=== PATIENT | male | born 1960 | race Caucasian/White ===

== ENCOUNTER 2024-01-11 14:43 | Outpatient (CLI) | payer BC, SELFPAY ==
[2024-01-11 15:33] LABS: Basophils # 0.1 K/mm3 (0-0.2); Basophils % 0.7 % (0.1-2.0); Eosinophils # 0.2 K/mm3 (0.0-0.4); Eosinophils % 2.3 % (0.1-12.0); Hematocrit 55.1 % (42.0-52.0); Hemoglobin 17.7 g/dL (14.1-18.0); Lymphocytes # 2.1 K/mm3 (0.7-4.5); Lymphocytes % 20.5 % (10-50); Mean Corpuscular HGB Conc 32.1 g/dL (31.8-35.4); Mean Corpuscular Hemoglobin 31.3 pg (27.0-31.2); Mean Corpuscular Volume 97.5 fl (80-94); Mean Platelet Volume 7.8 fl (7.4-10.4); Monocytes # 0.5 K/mm3 (0.1-1.0); Monocytes % 5.2 % (1.7-9.3); Neutrophils # 7.3 K/mm3 (1.8-7.8); Neutrophils % 71.3 % (37.0-80.0); Platelet Count 283 K/mm3 (142-424); Red Blood Count 5.65 M/mm3 (4.60-6.20); Red Cell Distribution Width 13.5 % (11.5-17.5); White Blood Count 10.2 K/mm3 (4.8-10.8)
[2024-01-11 15:54] LABS: Alanine Aminotransferase 27 U/L (12-78); Alkaline Phosphatase 78 U/L (38-126); Anion Gap 8.2 mEq/L (5-15); Aspartate Amino Transferase 26 U/L (17-59); Bilirubin,Direct 0.3 mg/dl (0.0-0.4); Bilirubin,Indirect 0.5 mg/dL (0.0-0.9); Bilirubin,Total 0.8 mg/dl (0.2-1.3); Bilirubin,Unconjugated 0.5 mg/dL (0.0-1.1); Blood Urea Nitrogen 18 mg/dl (9-20); Calcium 9.6 mg/dl (8.4-10.2); Carbon Dioxide 30 mmol/L (22.0-30.0); Chloride 104 mmol/L (98-107); Chol/HDL Ratio 3.6 (1-3.5); Cholesterol 218 mg/dl (140-200); Estimated Glomerular Filt Rate 85 ml/min (>60); GFR (African American) 103 ML/MIN (>60); Glucose 100 mg/dl (74-100); HDL Cholesterol 60 mg/dl (40-60); Magnesium 2.1 mg/dl (1.6-2.3); Potassium 4.2 mmoL/L (3.5-5.1); Sodium 138 mmol/L (136-145); Total Protein,Serum 7.1 g/dl (6.3-8.2); Triglycerides 175 mg/dl (30-150); VLDL Cholesterol 35 mg/dL (0-40)
[2024-01-11 16:05] LABS: Direct LDL Cholesterol 120.45 mg/dL (100-129)
[2024-01-11 16:10] LABS: Free T4 (Free Thyroxine) 1.31 ng/dl (0.78-2.19)
[2024-01-11 16:25] LABS: Thyroid Stimulating Hormone 2.24 uIU/mL (0.465-4.68)
[2024-01-11 17:51] LABS: Hemoglobin A1C 5.7 % (4.0-6.0)
== END 2024-01-11 23:59 | disposition home or self-care (01) ==
LOC: LAB 14:45
PROVIDERS: PCP Internal Medicine; Visit Provider Internal Medicine
DX: R06.09 Other forms of dyspnea (principal); I25.10 Atherosclerotic heart disease of native coronary artery without angina pectoris; E78.49 Other hyperlipidemia; R94.31 Abnormal electrocardiogram [ECG] [EKG]; R73.03 Prediabetes; R06.00 Dyspnea, unspecified; K21.9 Gastro-esophageal reflux disease without esophagitis; I11.9 Hypertensive heart disease without heart failure; Z72.0 Tobacco use
CPT/HCPCS: 36415; 80048; 80061; 80076; 83036; 83735; 84439; 84443; 85025

== ENCOUNTER 2024-01-14 06:03 | Outpatient (CLI) | payer BC, SELFPAY ==
--- NOTE | 2024-01-14 | CA_ITS ---
APPROVED REPORT Exam: Pharmacologic Technologist: Tracie Montgomery, Ht: 5 ft 7 in Wt: 230 lbs BSA: 2.15 m2 HR: 56 bpm BP: 115/74 mmHg Rhythm: Sinus griselda, PAC, inferior ST-T abns, cannot R/O old anterior TN Indications: CP, SOA Medical History Medications: Aspirin,,,,, Atorvastatin,,,,, Carvedilol,,,,, Albuterol,,,,, CloPIdogrel,,,,, ElIQUIS,,,,, Nitroglycerin,,,,, Cardiac Risk Factors: HTN, Smoking Stress Test Details Test: LEXISCAN HR Resting HR: 54 bpm Max Heart Rate (APMHR): 156 bpm Max HR Achieved: 72 bpm Target HR (85% APMHR): 133 bpm % of APMHR: 46 Recovery HR: 66 bpm BP Resting BP: 115.0/74.0 mmHg Max BP: 129.0/77.0 mmHg Recovery BP: 124.0/74.0 mmHg ECG Resting ECG: sinus griselda, PAC, inferior ST-T abns, R/O old anterior TN Stress ECG: No significant ST changes Arrhythmia: PVCs Clinical Exercise duration: 04:00 min Highest Stage Achieved: Exercise capacity: 1.0 METs Stress ECG Conclusion During lexiscan pt experinced mild SOA, chest pressure and head discomfort. Ectopy: Occasional PVCs noted. No significant ST changes. Conclusion: Unremarkable lexiscan stress. Myoview images reported separately. Test Summary REST . . . . . . . Sitting REST 04:32 . . 54 . 115/ 74 . . Stage 1 01:00 . . 57 . . . . Stage 2 01:00 . . 68 . 121/ 79 . . Stage 3 01:00 . . 68 . . . . Stage 4 01:00 . . 66 . 126/ 80 . Stop exercise at 04:00 RECOVERY 01:00 . . 65 . 124/ 74 . . RECOVERY 02:00 . . 65 . 129/ 77 . . RECOVERY 02:18 . . 65 . 129/ 77 . . Electronically signed by : Carla Smith MD 01/14/2024 11:33:01
--- NOTE | 2024-01-14 06:07 | CA_ITS ---
APPROVED REPORT EXAM: Comprehensive 2D, Doppler, and color-flow Echocardiogram Office Assistance: Rosy Herrera RDCS Ht: 5 ft 9 in Wt: 234lbs BSA: 2.21 BP: 116/84 mmHg Indications: DYSPNEA,SMOKER,COPD,HTN M-Mode Dimensions RVDd 1.55 cm (0.9-2.6) LA Diam 3.86 cm (1.9-4.0) LVDd 4.59 cm (3.5-5.7) LVDs 3.37 cm (3.5-5.7) IVSd 1.36 cm (0.6-1.1) PWd 1.26 cm (0.6-1.1) EF (Teich) 52.10% FS 26.60% EDV (Teich) 96.80 mL ESV (Teich) 46.40 mL LV Diastology E Decel Time 267 (160-240 msec) E/A Ratio 1.2 Mitral Valve MV E Max Yuan. 54.0 (40-130 cm/s) MV A Velocity 46.0 (40-130 cm/s) E/A Ratio 1.18 MV PHT 78.0 ms Left Ventricle The left ventricle is normal size. The left ventricular systolic function is mildly reduced. There is increased LV wall thickness. There is moderate hypokinesis of the inferior and inferior septal LV tripp. The left ventricular diastolic function is normal. LVEF is 45%. Right Ventricle The right ventricle is normal size. The right ventricular systolic function is normal. Atria The left atrium size is normal. The right atrium size is normal. There is no Doppler evidence of interatrial shunt. Aortic Valve Aortic valve is mildly thickened. There is no aortic valvular stenosis. No aortic regurgitation is present. Mitral Valve The mitral valve is normal in structure. No evidence of mitral valve stenosis. Trace mitral regurgitation. Tricuspid Valve The tricuspid valve leaflets are thin and pliable. Trace tricuspid regurgitation. There is insufficient TR jet to estimate RVSP. Pulmonic Valve The pulmonary valve is normal in structure. Trace pulmonic regurgitation. Great Vessels The aortic root is normal in size. The ascending aorta is not well-visualized. IVC is normal in size and collapses >50% with inspiration. Pericardium There is no pericardial effusion. Other Information Study Quality: Fair Conclusion Mildly reduced LV systolic function (LVEF 45%). Moderate hypokinesis of the inferior and inferior septal LV tripp. No significant valvular stenosis or regurgitation. Electronically signed by : Carla Smith MD 01/14/2024 11:37:26
--- NOTE | 2024-01-14 06:28 | NM_ITS ---
APPROVED REPORT Exam: Nuclear Stress Test Indication: a-fib..soa..fatigue Patient Location: Outpatient Stress Tech: rTacie MARTINES Tech:OSCAR Lin RT(R)(N) Ht: 5 ft 7 in Wt: 230 lbs HR: 54 bpm BP: 115/74 mmHg BSA: 2.15 m2 Rhythm: NSR TID: 1.14 BMI: 36.0 History: a-fib..soa..fatigue Procedure: Patient received 0.4 mg of intravenous Lexiscan, resting heart rate 54 bpm, resting blood pressure 115/74 mmHg, with Lexiscan maximum heart rate achieved was 72 bpm which is 85 % of the maximum predicted heart rate and blood pressure was 129/77 mmHg. With Lexiscan, patient denied any complaint of chest pain. Cardiac Stress and Resting SPECT Images: Cardiac Stress and Resting SPECT images were obtained using technetium 99m Myoview 31.7 mCi stress and 10.71 mCi at rest. Resting and stress imaging in supine and prone positions demonstrate a large sized, severe, fixed perfusion defect of the inferior LV wall from the base and extending distally towards the inferoapical region. Gated imaging demonstrates mild reduction global LV systolic function. There is severe hypokinesis of the inferior LV wall. LVEF is calculated at 41%. Conclusion: Large sized, severe, fixed perfusion defect of the inferior LV wall from the base and extending distally towards the inferoapical region. Findings are suggestive of prior infarct. No evidence of reversible ischemia. Gated imaging demonstrates mild reduction global LV systolic function. There is severe hypokinesis of the inferior LV wall. LVEF is calculated at 41%. Electronically signed by : Carla Smith MD 01/14/2024 11:34:51
[2024-01-14] MEDS: ISOTOPE MYOVIEW (PER STUDY) 1 DOSE IV (09:52)
[2024-01-14] MEDS: SODIUM CHLORIDE 0.9% 10ML SYR (RAD ONLY) 10 ML IV ×2 (09:52→09:53)
[2024-01-14] MEDS: REGADENOSON 0.4MG/5ML SYRINGE 0.4 MG IV (09:52)
== END 2024-01-14 23:59 | disposition home or self-care (01) ==
PROVIDERS: PCP Internal Medicine; Visit Provider Internal Medicine
DX: R06.09 Other forms of dyspnea (principal); I25.10 Atherosclerotic heart disease of native coronary artery without angina pectoris; E78.49 Other hyperlipidemia; I10 Essential (primary) hypertension; R94.31 Abnormal electrocardiogram [ECG] [EKG]; R07.89 Other chest pain
CPT/HCPCS: 78452; 93017; 93018; 93306; A9502; J2785

== ENCOUNTER 2024-02-08 17:44 | Outpatient (CLI) | payer BC, SELFPAY ==
--- NOTE | 2024-02-08 17:59 | CT_ITS ---
PROCEDURE INFORMATION: Exam: CT Abdomen And Pelvis Without Contrast Exam date and time: 02/08/2024 6:03 PM Age: 63 years old Clinical indication: Other: Right flank pain; Additional info: Right flank pain, nausea TECHNIQUE: Imaging protocol: Computed tomography of the abdomen and pelvis without contrast. Radiation optimization: All CT scans at this facility use at least one of these dose optimization techniques: automated exposure control; mA and/or kV adjustment per patient size (includes targeted exams where dose is matched to clinical indication); or iterative reconstruction. COMPARISON: No relevant prior studies available. FINDINGS: Lungs: Imaging through the lower thorax demonstrates a 3 mm benign calcified granuloma of the right lower lobe. Coronary artery calcification noted. Esophagus: Suggestion of circumferential wall thickening of the distal esophageal segment; neoplasm not excluded. Evaluation of the abdominal viscera is limited without IV contrast administration. Liver: Normal. No mass. Gallbladder and biliary ducts: Normal. No calcified stones. No ductal dilation. Pancreas: Increased lipomatous change of the pancreas. Spleen: Normal. No splenomegaly. Adrenal glands: Normal. No mass. Kidneys and ureters: No evidence of hydronephrosis or nephrolithiasis. Nonspecific subtle perinephric stranding. Stomach and bowel: Suggestion of a 10 mm lipoma of the 3rd segment of the duodenum. No evidence of small bowel obstruction or colitis. Colon diverticulosis without diverticulitis. Appendix: No evidence of appendicitis. Intraperitoneal space: Unremarkable. No free air. No significant fluid collection. Vasculature: A 2 cm length of the infrarenal distal abdominal aorta demonstrates aneurysmal dilatation most prominent of the dorsal wall where there is 10 mm dorsal aneurysmal dilatation, 5 mm right lateral aortic wall dilatation and minimal left lateral wall dilatation. No significant anterior wall dilatation of the distal aorta there is atherosclerotic calcification of the abdominal aorta, proximal right renal artery, iliac arteries and visualized femoral arteries. Aneurysmal dilatation of the right common femoral artery with the lumen measuring 1.9 x 1.7 cm with displaced calcification suggestive for dissection. Mild aneurysmal dilatation of the left common femoral artery with the lumen measuring 1.4 cm. Lymph nodes: Subcentimeter mesenteric lymph node enlargement. Urinary bladder: The urinary bladder is slightly indistinct. Reproductive: Prostate gland measures 4.3 x 4.9 x 4.0 cm and demonstrates several punctate calcifications. Bones/joints: No acute fracture. Soft tissues: 2.5 cm fat containing left inguinal hernia. 4.6 x 3.9 cm fat containing umbilical hernia. IMPRESSION: 1. No evidence of hydronephrosis or nephrolithiasis. 2. 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 3. Bilateral common femoral artery aneurysms, [id number]-left. There is suggestion of dissection of the right common femoral artery at the aneurysm site. 4. Urinary bladder is slightly indistinct. Advise clinical correlation for urinary tract infection. 5. Colon diverticulosis without diverticulitis. 6. There is suggestion of circumferential thickening of the distal esophageal wall presentation may be related to infection, inflammation or neoplasm. 7. 2.5 cm fat containing left inguinal hernia. 4.6 x 3.9 cm fat containing umbilical hernia. 8. Suggestion of a 10 mm lipoma of the 3rd segment of the duodenum. 9. Coronary artery calcification.
== END 2024-02-08 23:59 | disposition home or self-care (01) ==
LOC: RAD 17:45
PROVIDERS: PCP Internal Medicine; Visit Provider Internal Medicine
DX: R31.9 Hematuria, unspecified (principal); R10.9 Unspecified abdominal pain
CPT/HCPCS: 74176

== ENCOUNTER 2024-04-14 13:26 | Outpatient (CLI) | payer BC, SELFPAY ==
[2024-04-14 14:25] LABS: Anion Gap 4.9 mEq/L (5-15); Blood Urea Nitrogen 31 mg/dl (9-20); Calcium 9.6 mg/dl (8.4-10.2); Carbon Dioxide 38 mmol/L (22.0-30.0); Chloride 104 mmol/L (98-107); Estimated Glomerular Filt Rate 75 ml/min (>60); GFR (African American) 91 ML/MIN (>60); Glucose 68 mg/dl (74-100); Potassium 4.9 mmoL/L (3.5-5.1); Sodium 142 mmol/L (136-145)
== END 2024-04-14 23:59 | disposition home or self-care (01) ==
LOC: LAB 13:27
PROVIDERS: PCP Family Medicine; Visit Provider Physician Assistant
DX: I25.10 Atherosclerotic heart disease of native coronary artery without angina pectoris (principal); I10 Essential (primary) hypertension; E78.49 Other hyperlipidemia
CPT/HCPCS: 36415; 80048

== ENCOUNTER 2024-09-08 11:44 | Outpatient (CLI) | payer BC, SELFPAY ==
[2024-09-08 12:35] LABS: Basophils # 0.1 K/mm3 (0-0.2); Basophils % 0.7 % (0.1-2.0); Eosinophils # 0.4 Kmm3 (0.0-0.4); Eosinophils % 4.1 % (0.1-12.0); Hematocrit 47.5 % (42.0-52.0); Hemoglobin 15.8 g/dL (14.1-18.0); Immature Granulocytes # 0.03 10^3uL; Immature Granulocytes % 0.3 %; Lymphocytes # 2.6 K/mm3 (0.7-4.5); Lymphocytes % 30.1 % (10-50); Mean Corpuscular HGB Conc 33.3 g/dL (31.8-35.4); Mean Corpuscular Hemoglobin 30.5 pg (27.0-31.2); Mean Corpuscular Volume 91.7 fl (80-94); Mean Platelet Volume 9.6 fl (7.4-10.4); Monocytes # 0.7 K/mm3 (0.1-1.0); Monocytes % 7.5 % (1.7-9.3); Neutrophils % 57.3 % (37.0-80.0); Nucleated Red Blood Cells # 0 10^3/uL; Nucleated Red Blood Cells % 0 %; Platelet Count 260 K/mm3 (142-424); Red Blood Count 5.18 M/mm3 (4.60-6.20); Red Cell Distribution Width-SD 40.6 fL; White Blood Count 8.7 K/mm3 (4.8-10.8)
[2024-09-08 12:52] LABS: Alanine Aminotransferase 20 U/L (12-78); Alkaline Phosphatase 64 U/L (38-126); Aspartate Amino Transferase 26 U/L (17-59); Bilirubin,Direct 0.2 mg/dl (0.0-0.4); Bilirubin,Indirect 0.7 mg/dL (0.0-0.9); Bilirubin,Total 0.9 mg/dl (0.2-1.3); Bilirubin,Unconjugated 0.7 mg/dL (0.0-1.1); Calcium 9.6 mg/dl (8.4-10.2); Chloride 103 mmol/L (98-107); Chol/HDL Ratio 4.1 (1-3.5); Cholesterol 155 mg/dl (140-200); Glucose 92 mg/dl (74-100); HDL Cholesterol 38 mg/dl (40-60); Magnesium 2.3 mg/dl (1.6-2.3); Potassium 4.4 mmoL/L (3.5-5.1); Sodium 134 mmol/L (136-145); Triglycerides 171 mg/dl (30-150); VLDL Cholesterol 34 mg/dL (0-40)
[2024-09-08 13:03] LABS: Albumin Level 4.2 g/dl (3.5-5.0); Anion Gap 5.4 mEq/L (5-15); Blood Urea Nitrogen 19 mg/dl (9-20); Carbon Dioxide 30 mmol/L (22.0-30.0); Estimated Glomerular Filt Rate 114 ml/min (>60); GFR (African American) 137 ML/MIN (>60); Total Protein,Serum 6.7 g/dl (6.3-8.2)
[2024-09-08 13:08] LABS: Free T4 (Free Thyroxine) 1.31 ng/dl (0.78-2.19)
[2024-09-08 13:12] LABS: Direct LDL Cholesterol 82.16 mg/dL (100-129)
== END 2024-09-08 23:59 | disposition home or self-care (01) ==
LOC: LAB 11:45
PROVIDERS: PCP Internal Medicine; Visit Provider Physician Assistant
DX: E78.49 Other hyperlipidemia (principal); I11.0 Hypertensive heart disease with heart failure; I50.20 Unspecified systolic (congestive) heart failure; I25.10 Atherosclerotic heart disease of native coronary artery without angina pectoris; R06.09 Other forms of dyspnea; R07.89 Other chest pain; I95.9 Hypotension, unspecified
CPT/HCPCS: 36415; 80048; 80061; 80076; 83735; 84439; 84443; 85025

== ENCOUNTER 2024-12-21 10:00 | Outpatient (CLI) | payer MEDICARE, SELFPAY ==
--- OUTSIDE RECORDS SUMMARY | 2024-12-22 12:10 | XMS_ITS | Clinical Summary ---
Author Organization [facility] Address [address] [place] [address] Phone Care Team Providers Care Blend Technician Name Role Phone Unavailable Primary Care Provider Unavailabl e Allergies No known active allergies Medications divalproex (DEPAKOTE ER) 500 mg [id number]: Bipolar disorder (HCC) Take 3 Tabs by mouth nightly. 90 Tab 0 06/03/2010 Active Active Problems Problem Noted Date Diagnosed Date Bipolar disorder 10/23/2009 RLS (restless legs syndrome) 10/23/2009 Medical History Medical History Date Comments Bipolar disorder (HCC) 10/23/2009 RLS (restless legs syndrome) 10/23/2009 Social History Tobacco Use Types Packs/Day Years Used Date Smoking Tobacco: Every Day Cigarettes 1.5 30 Alcohol Use Standard Drinks/Week Comments Yes 0.8 (1 standard drink = 0.6 oz p ure alcohol) Sex and Gender Information Value Date Recorded Sex Assigned at Not on file Legal Sex Male 12:47 AM EDT Gender Identity Not on file Sexual Orientation Not on file Obstetrics History Last Filed Vital Signs Vital Sign Reading Time Taken Comments Blood Pressure 140/90 06/03/2010 4:26 PM EST Pulse 84 06/03/2010 4:26 PM EST Temperature 36.4 C (97.6 F) 06/03/2010 4:26 PM EST Respiratory Rate - - Oxygen Saturation - - Inhaled Oxygen Concentration - - Weight 96.3 kg (212 lb 6.4 oz) 06/03/2010 4:26 P M EST Height 174.6 cm (5' 8.75 ) 10/23/2009 4:40 PM ED T Body Mass Index 31.59 10/23/2009 4:40 PM EDT Plan of Treatment Health Maintenance Due Date Last Done Comments Annual Wellness Exam 12/01/1962 Hepatitis C Screening 12/01/1977 DTaP/TDaP/Td (1 - Tdap) 12/01/1978 Cologuard 12/01/2004 Colon Cancer Screening 12/01/2004 Colonoscopy 12/01/2004 FIT 12/01/2004 Sigmoidoscopy 12/01/2004 Virtual Colonography 12/01/2004 Low Dose Lung Cancer Screening 12/01/2009 Pneumococcal Vaccine 50+ (1 of 1 - PCV) 12/01/2009 Zoster (1 of 2) 12/01/2009 COVID-19 Vaccine (1 - 2023-2 5 season) 2024 Influenza Vaccine (#1) 2025 Hepatitis B Vaccine Aged Out No longe r eligible based on patient's age to complete this topic Meningococcal B Vaccine Aged Out No l onger eligible based on patient's age to complete this topic Insurance
--- OUTSIDE RECORDS SUMMARY | 2024-12-22 12:10 | XMS_ITS ---
Author Organization Unknown TREATMENT PLAN [facility] Start Date Provider Encounter for Check-up [id number] [facility]
== END 2024-12-21 23:59 | disposition home or self-care (01) ==
LOC: LAB.DROPOF 12-22 12:08
PROVIDERS: PCP Internal Medicine; Visit Provider Internal Medicine
DX: Z12.5 Encounter for screening for malignant neoplasm of prostate (principal)
CPT/HCPCS: G0103